=== PATIENT | male | born 1940 | race Caucasian/White ===

== ENCOUNTER 2019-09-08 20:47 | Inpatient (IN) | payer MEDICARE ==
[~2019-09-08] VITALS: Ht 188 cm; Wt 106.1 kg
[~2019-09-08 20:47] MED LIST: ADALAT CC90 MG PO; ARICEPT 5 MG TAB5 MG PO; ASPIR 8181 M1 PO; DOXYCYCLINE 10100 MG PO; FLEXERIL PO; LIPITOR80 MG PO; PRINIVIL20 MG PO; PROZAC20 MG PO; PYRIDIUM200 MG PO; TRAZODONE HCL100 MG PO; VITAMIN D3400 UNIT PO
[2019-09-08] MEDS ORDERED: BELBUCA300 MCG PO (21:00)
[2019-09-08] MEDS ORDERED: COLESTID1 GM PO (21:01)
[2019-09-08] MEDS ORDERED: CELEBREX 200 M200 M1 PO (21:02)
[2019-09-08] MEDS ORDERED: VENLAFAXINE HCL75 M2 PO (21:03)
[2019-09-08] MEDS ORDERED: NORCO 5-325 TA1 EAC1 PO (21:05)
[2019-09-08 21:22] LABS: HEMATOCRIT 48.2 % (42.0-52.0); HEMOGLOBIN 16.5 gm/dL (14.0-18.0); MCH 30.6 pg (26.0-34.0); MCHC 34.3 g/dL (28.0-37.0); MCV 89.3 fL (80.0-100.0); MPV 8.3 fl. (7.2-11.1); NUCLEATED RBCS 0 /100WBC; PLATELET COUNT* 255 thou/uL (150-400); RBC 5.39 mil/uL (4.50-6.00); RDW-CV 14.7 % (10.5-14.5); WBC 17.5 thou/uL (4.0-11.0)
[2019-09-08 21:26] LABS: CALCIUM 9.7 mg/dL (8.5-10.1); CREATININE 1.4 mg/dL (0.6-1.3); POTASSIUM 3.8 mmol/L (3.5-5.1)
[2019-09-08 21:31] LABS: ALBUMIN 3.9 g/dL (3.4-5.0); TOTAL PROTEIN 7.8 g/dL (6.4-8.2)
[2019-09-08 21:49] LABS: ABSOLUTE LYMPHOCYTES 1.6 thou/uL (0.8-5.3); ABSOLUTE MONOCYTES 0.5 thou/uL (0.0-1.2); ABSOLUTE NEUTROPHILS 15.4 thou/uL (1.6-8.1)
[2019-09-08 21:50] LABS: PLATELET ESTIMATE ADEQUATE
[2019-09-09 00:55] VITALS: BP 154/59
[2019-09-09] MEDS ORDERED: BUPROPION XL300 MG PO (02:24)
[2019-09-09 08:15] VITALS: BP 197/94
[2019-09-09 09:38] LABS: ABSOLUTE BASOPHILS 0.1 thou/uL (0.0-0.2); ABSOLUTE LYMPHOCYTES 1.2 thou/uL (0.8-5.3); ABSOLUTE MONOCYTES 2.1 thou/uL (0.0-1.2); BASOPHILS 0.6 %; EOSINOPHILS 0.1 %; HEMATOCRIT 44.6 % (42.0-52.0); HEMOGLOBIN 15.4 gm/dL (14.0-18.0); LYMPHOCYTES 7.1 %; MCH 30.6 pg (26.0-34.0); MCHC 34.5 g/dL (28.0-37.0); MCV 88.8 fL (80.0-100.0); MONOCYTES 12.2 %; NUCLEATED RBCS 0 /100WBC; PLATELET COUNT* 238 thou/uL (150-400); RBC 5.03 mil/uL (4.50-6.00); RDW-CV 14.4 % (10.5-14.5); WBC 17.4 thou/uL (4.0-11.0)
[2019-09-09 09:45] LABS: CALCIUM 9.2 mg/dL (8.5-10.1)
[2019-09-09 11:06] LABS: URINE BILIRUBIN NEGATIVE (Negative); URINE BLOOD 1+ (Negative); URINE CLARITY CLEAR; URINE COLOR YELLOW; URINE GLUCOSE-RANDOM NEGATIVE (Negative); URINE KETONES NEGATIVE (Negative); URINE LEUKOCYTES-REFLEX NEGATIVE (Negative); URINE NITRITE-REFLEX NEGATIVE (Negative); URINE PROTEIN NEGATIVE (Negative); URINE SPECIFIC GRAVITY <= 1.005 (1.005-1.030); URINE UROBILINOGEN 0.2 E.U./dl (0.2-1.0)
[2019-09-09 11:26] LABS: SQUAMOUS 0-3 Few /LPF (0-3)
[2019-09-09 11:27] LABS: BACTERIA-REFLEX 1-9 Few /HPF (None Seen); MUCUS 4-6 Moderate strn/LPF (None Seen); URINE RBC 3-10 Few /HPF (0-2); URINE WBC-REFLEX 0-5 Rare /HPF (0-5)
[2019-09-09 11:28] LABS: CASTS None Seen /LPF (None Seen); CRYSTALS None Seen /LPF (None Seen)
[2019-09-09 17:47] VITALS: BP 141/68
[2019-09-09 20:10] VITALS: BP 122/67
[2019-09-10 03:57] LABS: CALCIUM 8.3 mg/dL (8.5-10.1); CREATININE 1.2 mg/dL (0.6-1.3); POTASSIUM 3.8 mmol/L (3.5-5.1)
[2019-09-10 04:07] LABS: ABSOLUTE LYMPHOCYTES 1.4 thou/uL (0.8-5.3); ABSOLUTE MONOCYTES 1.4 thou/uL (0.0-1.2); ABSOLUTE NEUTROPHILS 10.7 thou/uL (1.6-8.1); BASOPHILS 0.2 %; EOSINOPHILS 0.1 %; HEMATOCRIT 40.8 % (42.0-52.0); HEMOGLOBIN 13.9 gm/dL (14.0-18.0); LYMPHOCYTES 10.1 %; MCH 30.6 pg (26.0-34.0); MCHC 34.1 g/dL (28.0-37.0); MCV 89.7 fL (80.0-100.0); MONOCYTES 10.6 %; MPV 8.3 fl. (7.2-11.1); NUCLEATED RBCS 0 /100WBC; PLATELET COUNT* 217 thou/uL (150-400); RBC 4.55 mil/uL (4.50-6.00); RDW-CV 14.6 % (10.5-14.5); WBC 13.5 thou/uL (4.0-11.0)
[2019-09-10 09:05] VITALS: BP 119/62
[2019-09-10 11:29] VITALS: BP 119/62
[2019-09-10] MEDS ORDERED: TAMSULOSIN HCL0.4 MG PO (12:08)
[2019-09-10] MEDS ORDERED: AUGMENTIN 875-1 EACH PO (12:17)
[2019-09-10 16:05] VITALS: BP 119/62
--- NOTE | 2019-09-11 13:56 | EKG ---
[place] [address] ELECTROCARDIOGRAM REPORT Name: DIONNA FLOREZ Room: [address] M.R.#: [id number] Admission: 09/08/19 Attend Phys: Camden Mendez Discharge: 09/10/19 Date of : 36 Report #: [id number] THIS REPORT FOR: //name// [facility] ED Test Date: 2019-09-08 Test Time: 20:54:56 Pat Name: DIONNA FLOREZ Department: Room: [address] Gender: M Housing Assistant: MD : [id number] Requested By: Jacquelyn Cee Order Number: [id number] Jaun MD: Scott Rivas Measurements Intervals [place] Rate: 107 P: 38 OR: 185 QRS: -7 QRSD: 87 T: 36 QT: 332 QTc: 443 Interpretive Statements Sinus tachycardia Compared to ECG 01/31/2006 22:59:51 Sinus rhythm no longer present Electronically Signed On 09-11-2019 13:55:59 [employer] by Scott Rivas [email or web address] <ELECTRONICALLY SIGNED> By: Scott Rivas MD, [facility] 09/11/19 [id number] Scott Rivas MD, [facility] /EPI
== END 2019-09-10 16:05 | disposition home or self-care (01) | DRG 871 ==
LOC: M.ERS 20:47 → M.TBA-ER 23:47 → M.ORTHSURG 23:47
PROVIDERS: Emergency Medicine; ADMIT Internal Medicine
DX: A41.9 Sepsis, unspecified organism (principal); J69.0 Pneumonitis due to inhalation of food and vomit; G93.41 Metabolic encephalopathy; N17.0 Acute kidney failure with tubular necrosis; N13.30 Unspecified hydronephrosis; I10 Essential (primary) hypertension; F03.90 Unspecified dementia, unspecified severity, without behavioral disturbance, psychotic disturbance, mood disturbance, and anxiety; R33.9 Retention of urine, unspecified; K57.90 Diverticulosis of intestine, part unspecified, without perforation or abscess without bleeding; Z85.46 Personal history of malignant neoplasm of prostate; Z88.8 Allergy status to other drugs, medicaments and biological substances; Z90.49 Acquired absence of other specified parts of digestive tract; Z79.899 Other long term (current) drug therapy

== ENCOUNTER 2021-11-02 13:19 | Emergency (ER) | payer MEDICARE ==
[~2021-11-02] VITALS: Ht 188 cm; Wt 102.1 kg
[~2021-11-02 13:19] MED LIST changes: +AUGMENTIN 875-1 EACH PO; +BELBUCA300 MCG PO; +BUPROPION XL300 MG PO; +CELEBREX 200 M200 M1 PO; +COLESTID1 GM PO; +NORCO 5-325 TA1 EAC1 PO; +TAMSULOSIN HCL0.4 MG PO; +VENLAFAXINE HCL75 M2 PO
[2021-11-02] MEDS ORDERED: CEPHALEXIN500 MG PO (14:51)
[2021-11-02 15:05] VITALS: BP 184/84
== END 2021-11-02 15:06 | disposition home or self-care (01) ==
LOC: M.ERS 13:19
DX: S01.21XA Laceration without foreign body of nose, initial encounter (principal); R04.0 Epistaxis; I10 Essential (primary) hypertension; Z90.49 Acquired absence of other specified parts of digestive tract; Z79.899 Other long term (current) drug therapy; Z88.8 Allergy status to other drugs, medicaments and biological substances; W01.0XXA Fall on same level from slipping, tripping and stumbling without subsequent striking against object, initial encounter; Y93.01 Activity, walking, marching and hiking; Y92.512 Supermarket, store or market as the place of occurrence of the external cause; Y99.8 Other external cause status